=== PATIENT | female | born 1995 | race Caucasian/White ===

== ENCOUNTER 2020-01-06 15:38 | Emergency (ER) | payer OTHER, SELFPAY ==
[2020-01-06 17:17] VITALS: BP 125/74; PULSE 101; RESP 18; TEMP 37.2; O2SAT 98; BMI 20.2
--- NOTE | 2020-01-06 17:24 | CT_ITS ---
EXAMINATION: CT CHEST WITHOUT CONTRAST CLINICAL INFORMATION: sob, cough . COMPARISON: No pertinent prior studies are available for comparison. TECHNIQUE: Multidetector volumetric imaging was performed from the thoracic inlet through the lung bases without contrast. Sagittal and coronal reformatted images were obtained on the technologist workstation. Soft tissue and lung algorithms evaluated. Thick slab MIP images were performed to increase nodule conspicuity. This CT examination was performed using dose optimization techniques as appropriate, variously including the following: *Automated exposure control *Adjustment of mA and/or kV according to patient size (this includes techniques or standardized protocols for targeted exams where dose is matched to indication/reason for exam; i.e. extremities or head) *Use of iterative reconstruction technique DLP: 173 mGy-cm. FINDINGS: LUNG: The lungs are clear without focal opacity or nodule. MEDIASTINUM: The mediastinum is normal. The central vascular structures are unremarkable. No hilar or mediastinal lymphadenopathy. PERICARDIUM/PLEURA: No significant effusion. No pleural mass or thickening. THYROID/VISUALIZED LOWER NECK: Unremarkable. CHEST WALL/AXILLA: Unremarkable. VISUALIZED UPPER ABDOMEN: Unremarkable. CT/CT chest wo con IMPRESSION: No acute abnormality seen. No focal airspace disease..
--- NOTE | 2020-01-06 17:27 | ED_ITS ---
HPI - Asthma General Chief Complaint: Dyspnea Stated Complaint: Asthma Time Seen by Provider: 01/06/20 17:24 Source: patient Mode of arrival: ambulatory Limitations: no limitations History of Present Illness HPI Narrative: 24-year-old female presents with newly diagnosed asthma with suspected asthma exacerbation. States to have shortness of breath, wheezing, and cough for the past several days. Has been using her albuterol inhaler on a regular basis however she feels like her symptoms have not been relieved or alleviated from the inhaler. She is being worked up for lung nodule but does not have any information on when she was diagnosed with it or what her primary care physician suspects that this could be. She does not report any toxic habits, denies chest pain and pressure, palpitations, abdominal pain, abdominal distention, dysuria, hematuria, nausea, vomiting, fevers and chills. MD complaint: shortness of breath and wheezing Onset (ago): day(s) Severity: moderate Associated symptoms: dry cough Asthma History: adult onset Treatments Prior to Arrival: inhaled bronchodilator and inhaled steroid Related Data Current Asthma Therapy: inhaled bronchodilator Previous Rx's Medication Instructions Recorded albuterol sulfate 2 puff INHALATION Q6H PRN #8.5 g 01/06/20 prednisone 50 mg PO DAILY 5 Days #5 tab 01/06/20 Allergies Allergy/AdvReac Type Severity Reaction Status Date / Time bee pollen [BEE STINGS] Allergy Intermediate HIVES Unverified 11/19/19 17:09 lactose [LACTOSE] AdvReac Unknown VOMITING Unverified 11/19/19 17:09 FROM LACTOSE INTOLERANCE Review of Systems Review of Systems: Constitutional: No Fever, No Chills ENT/Mouth: No Hoarseness, No sore throat, No Rhinorrhea Eyes: No Redness, No Discharge, No Vision Changes Cardiovascular: positive Wheezing, positive SOB, No Chest Pain, No Dyspnea on Exertion, No Edema Respiratory: positive Cough, No Sputum, Gastrointestinal: No Nausea, No Vomiting, No Diarrhea, No abdominal Pain Genitourinary: No Dysuria, No Hematuria Musculoskeletal: No joint pain, No Myalgias Skin: No rash Neuro: No Weakness, No Numbness, No Headache Psych: No anxiety, depression Heme/Lymph: No Bruising, No Bleeding Endocrine: No Polyuria, No Polydipsia PMFSH Past Medical History Attestation statement: The following information was validated with the patient. Source: old records reviewed Medical History Asthma Social History Social History Smoked in Last 30 Days: No Use of substances other than those prescribed or required for medical reasons: No Advance Directives: No Advance Directives Information Provided: Yes Physical Exam Vital Signs: Vital Signs: Vital Signs Temp Pulse Resp BP Pulse Ox 01/06/20 20:00 97.8 F 104 H 16 101/57 L 97 01/06/20 19:32 98.8 F 108 H 18 99/52 L 100 01/06/20 17:55 86 100 01/06/20 17:17 98.9 F 101 H 18 125/74 98 Body Mass Index 20.2 Appearance: Alert. Oriented X3. No acute distress. Head: Normal external exam. Normocephalic. Atraumatic. No Larios signs noted. No raccoon eyes noted Eyes: PERRLA. EOMI. Conjunctiva and sclera normal. Eyelids normal. ENT: TM's Normal. Pharynx normal. Uvula midline. Moist mucous membranes. No trismus noted. No drooling noted. No muffled voice noted. Neck: Normal inspection. Neck supple. No adenopathy. Thyroid Normal. No meningeal signs. No neck mass noted. CVS: Normal heart rate and rhythm. Heart sound normal. No murmurs noted. Pulses equal to all extremities. Respiratory: Breath sounds wheezes With poor air flow to all lobes, No rales or rhonchi noted. Chest nontender. No respiratory distress. Painless inspiration. No accessory muscle usage noted or decreased air movement noted. Abdomen: Soft and nontender. Bowel sounds normal in all 4 quadrants. No distention noted. No organomegaly noted. No visible injury noted. Back: No CVA tenderness. Full range of motion noted. Skin: Skin warm and dry. Normal skin color. Normal skin turgor. No rashes/lesions/lacerations noted. Extremities: No lower extremity edema. Extremities exhibit normal range of motion. Extremities nontender. Neuro: cranial nerves 2-12 intact, no focal neural deficits, strength 5/5 to all extremities, No motor deficit. No sensory deficit. Reflexes normal. Course Course Course Narrative: Patient has poor air flow and wheezing throughout all lobes, respiration rate 18, unlabored with O2 sat at 98% on room air. Plan of care is for 1 hour long neb, Solu-Medrol, IV fluids and CT scan of the chest. CT scan of chest is negative for acute findings, midway through neb treatment air flow has improved however wheezing still Present. Re-evaluation about 30 minutes after nebulizer treatment has been completed, Lung sounds have improved, even unlabored respirations at 16 per minute, O2 sat 100% on room air, vital signs hemodynamically stable, discussed CT scan results with patient and plan of care discharge home with prednisone and albuterol prescription. Patient does understand that she needs to follow-up with primary care provider as she may need further management for asthma. Patient verbalized understanding of and agrees to plan of care discharge home. MDM - Asthma Differential Diagnosis Differential diagnosis: Likely Acute exacerbation, Acute asthmatic bronchitis and Pneumonia Medical Records Attestation: I reviewed the patient's medical records. Lab Data Attestation: I reviewed the patient's lab results. Result diagrams: 01/06/20 17:39 Labs: Lab Results 01/06/20 01/06/20 01/06/20 Range/Units 17:39 17:39 17:39 WBC 7.4 (4.8-10.8) X10*3/uL RBC 4.38 (4.20-5.50) X10*6/uL Hgb 13.3 (12.0-16.0) g/dl Hct 38.4 (37-47) % MCV 87.7 (80-98) fL MCH 30.4 (27.0-33.0) pg MCHC 34.6 (31.0-35.0) g/dl RDW 11.4 (11.0-16.0) % Plt Count 362 (160-400) X10*3/uL MPV 9.7 (9.4-12.3) fL Immature Gran % (Auto) 0.3 (0.0-0.4) % Neut % (Auto) 54.8 (45-73) % Lymph % (Auto) 35.9 (20-40) % [place] % (Auto) 7.4 (2-11) % Eos % (Auto) 1.2 (0-4) % Baso % (Auto) 0.4 (0-2) % Lymph # (Auto) 2.7 (1.2-4.9) X10*3/uL [place] # (Auto) 0.6 (0.1-1.2) X10*3/uL Eos # (Auto) 0.1 (0.0-0.4) X10*3/uL Baso # (Auto) 0.0 (0.0-0.2) X10*3/uL Abs Immat Gran (auto) 0.02 (0.00-0.03) X10*3/uL Absolute Neuts (auto) 4.1 (2.0-8.3) X10*3/uL Absolute Nucleated RBC 0.000 (0.0-0.012) X10*3/uL Nucleated RBC % (auto) 0.0 (0.0-0.2) /100WBC Magnesium 1.9 (1.6-2.6) mg/dL Urine Color YELLOW Urine Appearance CLEAR Urine pH 6.5 (5.0-8.0) Ur Specific [place] 1.015 (1.005-1.025) Urine Protein NEG (NEG-TRACE) MG/DL Urine Glucose (UA) NEG (NEG) MG/DL Urine Ketones NEG (NEG) MG/DL Urine Blood 1+ H (NEG) Urine Nitrite NEG (NEG) Ur Leukocyte Esterase NEG (NEG) Urine RBC 0-2 (0) /HPF Urine WBC 0-2 (0-4) /HPF Ur Squamous Epith Cells NONE /LPF Urine Bacteria NONE /LPF Urine Test NEGATIVE (NEGATIVE) Imaging Data CT scan - chest: Attestation: I personally reviewed and interpreted this imaging study as follows: Radiologist's impression: CT CHEST WITHOUT CONTRAST CLINICAL INFORMATION: sob, cough . COMPARISON: No pertinent prior studies are available for comparison. TECHNIQUE: Multidetector volumetric imaging was performed from the thoracic inlet through the lung bases without contrast. Sagittal and coronal reformatted images were obtained on the technologist workstation. Soft tissue and lung algorithms evaluated. Thick slab MIP images were performed to increase nodule conspicuity. This CT examination was performed using dose optimization techniques as appropriate, variously including the following: *Automated exposure control *Adjustment of mA and/or kV according to patient size (this includes techniques or standardized protocols for targeted exams where dose is matched to indication/reason for exam; i.e. extremities or head) *Use of iterative reconstruction technique DLP: 173 mGy-cm. FINDINGS: LUNG: The lungs are clear without focal opacity or nodule. MEDIASTINUM: The mediastinum is normal. The central vascular structures are unremarkable. No hilar or mediastinal lymphadenopathy. PERICARDIUM/PLEURA: No significant effusion. No pleural mass or thickening. THYROID/VISUALIZED LOWER NECK: Unremarkable. CHEST WALL/AXILLA: Unremarkable. VISUALIZED UPPER ABDOMEN: Unremarkable. CT/CT chest wo con IMPRESSION: No acute abnormality seen. No focal airspace disease.. ECG Data Attestation: I personally reviewed and interpreted this ECG as follows: ECG interpretation date: 01/06/20 ECG interpretation time: 18:13 Prior ECG tracings: not available for review Interpretation: Vent. Rate : 097 BPM Atrial Rate : 097 BPM P-R Int : 144 ms QRS Dur : 084 ms QT Int : 376 ms P-R-T Axes : 051 106 030 degrees QTc Int : 477 ms Normal sinus rhythm Rightward axis Nonspecific ST abnormality Abnormal ECG No previous ECGs available Critical Care Time Critical Care Time Critical Care Time: Yes Total Critical Care Time: 60 Attestation: I have personally provided critical care time exclusive of time spent on separately billable procedures. Time includes review of laboratory data, radiology results, discussion with consultants, and monitoring for potential decompensation. Interventions were performed as documented. Discharge Plan Discharge Clinical Impression: Asthma with exacerbation Qualifiers: Asthma severity: moderate Asthma persistence: persistent Qualified Code(s): J45.41 - Moderate persistent asthma with (acute) exacerbation Patient Disposition: Home, Self-Care Instructions: Asthma (ED), Moderate and Severe Persistent Asthma (ED), Wheezing (ED) Additional Instructions: you were evaluated for shortness of breath suspected to be asthma exacerbation. Please follow-up with primary care physician as you may need further medications to control your asthma. We refilled your albuterol inhaler. We prescribed prednisone 50 mg for the next 5 days. Please start this medication tomorrow. your CT scan of the chest was negative for acute findings. your blood work was normal. Thank you for choosing this emergency department for evaluation. Please follow-up with primary care physician as needed. Return to the emergency department for any new, concerning, or worsening symptoms. Prescriptions: New prednisone 50 mg tablet 50 mg PO DAILY 5 Days Qty: 5 RF: 0 albuterol sulfate 90 mcg/actuation HFA aerosol inhaler 2 puff inhalation Q6H PRN (Reason: shortness of breath or wheezing) Qty: 8.5 RF: 1 Stand Alone Forms: Work/School Release Interventions: ED Discharge Assessment Last Done: 01/06/20 20:40 Discharge Date/Time: 01/06/20 20:41
--- NOTE | 2020-01-06 17:29 | ECG_ITS ---
Test Reason : Shortness of breath Blood Pressure : / mmHG Vent. Rate : 097 BPM Atrial Rate : 097 BPM P-R Int : 144 ms QRS Dur : 084 ms QT Int : 376 ms P-R-T Axes : 051 106 030 degrees QTc Int : 477 ms Normal sinus rhythm Rightward axis Low voltage QRS Nonspecific ST abnormality Abnormal ECG No previous ECGs available Referred By: Delma Neri Electronically Signed By:YOSVANY TRIPLETT MD
[2020-01-06] MEDS: methylPREDNISolone Sod Succ/PF 125 MG/2 ML VIAL IVPUSH (17:44)
[2020-01-06] MEDS: Magnesium Sulfate/H2O 2 GM/50 ML PIGGYBACK IV (17:44)
[2020-01-06] MEDS: 0.9 % Sodium Chloride 1,000 ML 999 ML IVCONT (17:44)
[2020-01-06 17:45] LABS: Basophils Percent Auto 0.4 % (0-2); Eosinophils Absolute Auto 0.1 X10*3/uL (0.0-0.4); Eosinophils Percent Auto 1.2 % (0-4); Hematocrit 38.4 % (37-47); Hemoglobin 13.3 g/dl (12.0-16.0); Imm Gran Abs Auto 0.02 X10*3/uL (0.00-0.03); Imm Gran Pct Auto 0.3 % (0.0-0.4); Lymphocytes Absolute Auto 2.7 X10*3/uL (1.2-4.9); Lymphocytes Percent Auto 35.9 % (20-40); MANUAL DIFF FLAG NO; Mean Corpuscular HGB Conc 34.6 g/dl (31.0-35.0); Mean Corpuscular Hemoglobin 30.4 pg (27.0-33.0); Mean Corpuscular Volume 87.7 fL (80-98); Mean Platelet Volume 9.7 fL (9.4-12.3); Monocytes Absolute Auto 0.6 X10*3/uL (0.1-1.2); Monocytes Percent Auto 7.4 % (2-11); Neutrophils Absolute Auto 4.1 X10*3/uL (2.0-8.3); Neutrophils Percent Auto 54.8 % (45-73); Platelet Count 362 X10*3/uL (160-400); Red Blood Count 4.38 X10*6/uL (4.20-5.50); Red Cell Distribution Width 11.4 % (11.0-16.0); White Blood Count 7.4 X10*3/uL (4.8-10.8)
[2020-01-06 17:52] LABS: Glucose Urine UA NEG (NEG); Leukocyte Esterase Urine NEG (NEG); Nitrite Urine NEG (NEG); PH 6.5 (5.0-8.0); Specific Gravity - Urine 1.015 (1.005-1.025); Urine Blood 1+ (NEG); Urine Ketones NEG (NEG); Urine Protein NEG (NEG-TRACE)
[2020-01-06 17:55] VITALS: PULSE 86; O2SAT 100
[2020-01-06 17:58] LABS: Appearance Urine CLEAR; Color Urine YELLOW
[2020-01-06] MEDS: Albuterol Sulfate (0.083%) 2.5 MG/3 ML VIAL.NEB 10 MG INHALE (17:58)
[2020-01-06 18:04] LABS: RBC Urine 0-2 /HPF (0); WBC Urine 0-2 /HPF (0-4)
[2020-01-06 18:13] LABS: Magnesium 1.9 mg/dL (1.6-2.6)
[2020-01-06 18:33] LABS: UPreg QC Valid YES; Urine Pregnancy NEGATIVE (NEGATIVE)
--- NOTE | 2020-01-06 19:30 | PC.NURSE ---
REPORT TAKEN FROM SIMÓN PACHECO, FIRST CONTACT WITH PT. RETURNED FROM CT, REQUESTING FLUIDS FEELING DIZZY FROM PREVIOUSLY ADMINISTERED BREATHING TREATMENTS. SKIN PWD RESPIRATIONS EVEN UNLABORED. INSPIRATORY WHEEZING ON AUSCULTATION.VSS, SO2 100% ON RA. AWAITING RESULTS. AWARE OF PLAN OF CARE.
[2020-01-06 19:32] VITALS: BP 99/52; PULSE 108; RESP 18; TEMP 37.1; O2SAT 100
[2020-01-06 20:00] VITALS: BP 101/57; PULSE 104; RESP 16; TEMP 36.6; O2SAT 97
== END 2020-01-06 20:41 | disposition home or self-care (01) ==
PROVIDERS: Nurse Practitioner Family; Emergency Provider Internal Medicine
DX: J45.41 Moderate persistent asthma with (acute) exacerbation (principal); R05 Cough; Z79.899 Other long term (current) drug therapy
CPT/HCPCS: 36415; 71250; 81001; 81025; 83735; 85025; 93005; 96365; 96366; 96375; 99284; 99291; J2930; J3475

== ENCOUNTER 2020-07-01 09:39 | Emergency (ER) | payer OTHER, SELFPAY ==
[2020-07-01 10:25] VITALS: BP 106/61; PULSE 68; RESP 18; O2SAT 100; BMI 20.2
--- NOTE | 2020-07-01 10:36 | ED.GENADULT ---
HPI - General Adult General Chief complaint: General Medical Stated complaint: CHEMICAL EXPOSURE Time Seen by Provider: 07/01/20 10:26 Source: patient Mode of arrival: ambulatory Limitations: no limitations History of Present Illness HPI narrative: Patient is a 25-year-old female with a past medical history of asthma to was driving a truck for work, she works for [employer], and started feeling dizzy and nauseous and vomited 1 time. She exit of the truck and when coworkers entered the cab they noticed it smelled funny. Patient then went home and vomited 2 more times, nothing bloody or black, it was all food. She did use her albuterol inhaler once. She went to her PCP this morning who sent her here for an evaluation. Patient currently endorses a headache and some nausea but denies chest pain, shortness of breath, abdominal pain. Related Data Previous Rx's Medication Instructions Recorded albuterol sulfate 2 puff INHALATION Q6H PRN #8.5 g 01/06/20 prednisone 50 mg PO DAILY 5 Days #5 tab 01/06/20 Allergies Allergy/AdvReac Type Severity Reaction Status Date / Time bee pollen [BEE STINGS] Allergy Intermediate HIVES Unverified 11/19/19 17:09 lactose [LACTOSE] AdvReac Unknown VOMITING Unverified 11/19/19 17:09 FROM LACTOSE INTOLERANCE Review of Systems Review of Systems: Yes all other systems are reviewed and are negative [facility] Past Medical History Medical History Asthma Social History Social History Advance Directives: Yes Advance Directives Information Provided: Yes Advance Directives on File: No Physical Exam Vital Signs: Vital Signs: Last Vital Signs Pulse 68 07/01/20 10:25 Resp 18 07/01/20 10:25 BP 106/61 07/01/20 10:25 Pulse Ox 100 07/01/20 10:25 Body Mass Index 20.2 Const: General: cooperative, healthy appearing, comfortable, no acute distress and well developed Orientation/consciousness: patient oriented x3 Limitations: no limitations HENMT: Head: Yes normal to inspection Eyes: General: appearance normal, both eyes and all related structures Neck: Neck: Yes normal visual inspection and Yes full ROM Resp: Effort & Inspection: normal respiratory effort and able to speak in complete sentences Auscultation: clear to auscultation bilaterally Cardio: Rate: regular rate Rhythm: regular rhythm Heart sounds: normal S1 and S2 GI: Inspection: Yes normal to inspection Palpation (GI): Soft to palpation and nontender Skin: General skin exam: no rashes or lesions noted Neuro: General: patient oriented x3 Extrem: General: Yes normal to inspection Course Course Course Narrative: Patient is a 25-year-old female with a past medical history of asthma who had a carbon monoxide exposure approximately 10-1/2 hours ago. Vital signs are stable. Patient is well-appearing and her only complaint is a slight headache and nausea. Will give Zofran and get carbon monoxide level then likely discharge. Reevaluation(s) Reevaluation #1: Patient states she is feeling better, reviewed lab results, will give patient the day off tomorrow so she can rest and feel better. Time: 11:29 Medical Decision Making Lab Data Lab results reviewed: Yes I reviewed the patient's lab results. Labs: Lab Results 07/01/20 Range/Units 11:15 Carboxyhemoglobin % 0.7 % Discharge Plan Discharge Clinical Impression: Accidental exposure to carbon monoxide Patient Disposition: Home, Self-Care Instructions: Carbon Monoxide Poisoning (ED) Additional Instructions: Lab work today was normal, your vital signs are stable, it is likely you did have an exposure based on your symptoms but as you have removed yourself from the exposure, your headache and nausea should dissipate over the next day. Please be sure to stay well hydrated and get lots of rest, you may return to work when you are feeling better. If your symptoms persist, please follow-up with your PCP Prescriptions: No Action prednisone 50 mg tablet 50 mg PO DAILY 5 Days Qty: 5 RF: 0 albuterol sulfate 90 mcg/actuation HFA aerosol inhaler 2 puff inhalation Q6H PRN (Reason: shortness of breath or wheezing) Qty: 8.5 RF: 1 Stand Alone Forms: Work/School Release
[2020-07-01 11:21] LABS: Carbon Monoxide POC 0.7 %
[2020-07-01 11:23] LABS: Carbon Monoxide Refer to POC result
== END 2020-07-01 11:33 | disposition home or self-care (01) ==
PROVIDERS: Physician Assistant; Emergency Provider Emergency Medicine
DX: R51.9 Headache, unspecified (principal); R42 Dizziness and giddiness; R11.2 Nausea with vomiting, unspecified; T58.01XA Toxic effect of carbon monoxide from motor vehicle exhaust, accidental (unintentional), initial encounter; Y92.812 Truck as the place of occurrence of the external cause
CPT/HCPCS: 36415; 99283